=== PATIENT | male | born 1985 | race Caucasian/White ===

== ENCOUNTER 2016-12-24 17:29 | Emergency (ER) | payer SELFPAY ==
[~2016-12-24] VITALS: Ht 185.4 cm; Wt 124.7 kg
[2016-12-24 18:02] LABS: BASO # 0.1 x10^3/uL (0.0-0.2); BASO % 1 % (0-3); EOS # 0.1 x10^3/uL (0.0-0.7); EOS % 1 % (0-3); HEMATOCRIT 43.9 % (39.0-53.0); HEMOGLOBIN 14.9 g/dL (13.0-17.5); LYMPH % 12 % (24-48); MEAN CORPUSCULAR HEMOGLOBIN 31 pg (25-35); MEAN CORPUSCULAR HGB CONC 34 g/dL (31-37); MEAN CORPUSCULAR VOLUME 90 fL (79-100); MONO # 0.8 x10^3/uL (0.0-1.1); MONO % 9 % (0-9); NEUT # 6.8 x10^3uL (1.8-7.7); NEUT % 77 % (31-73); PLATELET COUNT 196 x10^3/uL (140-400); RED BLOOD COUNT 4.88 x10^6/uL (4.30-5.70); RED CELL DISTRIBUTION WIDTH 13.6 % (11.5-14.5); WHITE BLOOD COUNT 8.8 x10^3/uL (4.0-11.0)
[2016-12-24] MEDS: fentaNYL PF 100 MCG/2 ML VIAL IV PRN ×2 (18:03→18:25)
[2016-12-24] MEDS ORDERED: IV NORMAL SALINE 1,000ML 1,000 ML IV SCH (18:15)
[2016-12-24] MEDS ORDERED: fentaNYL PF 100 MCG/2 ML VIAL IV ONE (18:15)
[2016-12-24] MEDS ORDERED: ONDANSETRON PF 4 MG/2 ML VIAL. IV ONE (18:15)
--- NOTE | 2016-12-24 18:21 | PHYS DOC ---
Past History Past Medical History: No Pertinent History Past Surgical History: No Surgical History Alcohol Use: None Drug Use: None Adult General Chief Complaint Chief Complaint: TESTICULAR PAIN OR INJURY HPI HPI Patient is a 31-year-old male who drove himself to the ED with the complaint of right flank/mid abdominal pain and right testicle pain all day today. The patient worked late and didn't get to bed until 4:00 in the morning. He only slept 3 hours before being waked up by pain on the right side of his mid abdomen which has gone down toward his right groin and into his right testicle. He presented with the complaint of right testicle pain, but in fact his pain seems to start in his right flank, goes toward his right mid abdomen and right lower abdomen and into his right testicle. He's had no blood in his urine, no dysuria. No urinary retention. He has had one kidney stone before but he doesn' t think it feels like this. He has not had abdominal surgeries. He's had nausea but no vomiting. Denies fever or chills. Review of Systems Review of Systems Constitutional: Denies fever or chills [] Respiratory: Denies cough or shortness of breath [] GI: As in history of present illness : Denies dysuria or hematuria [] Musculoskeletal: Denies back pain or joint pain [] Current Medications Current Medications Current Medications Medications (Trade) Dose Ordered Sig/Amie Start Time Stop Time Status Last Admin Dose Admin Fentanyl Citrate (Fentanyl 2ml Vial) 100 mcg 1X ONCE 12/24/16 18:15 12/24/16 18:16 Ondansetron HCl (Zofran) 4 mg 1X ONCE 12/24/16 18:15 12/24/16 18:16 12/24/16 18:03 4 MG Sodium Chloride 1,000 ml @ 1,000 mls/hr Q1H 12/24/16 18:15 12/24/16 19:14 12/24/16 18:03 1,000 MLS/HR Allergies Allergies Allergies Coded Allergies Type Severity Reaction Last Updated Verified No Known Drug Allergies 12/24/16 No Physical Exam Physical Exam Constitutional: Well developed, well nourished, no acute distress, non-toxic appearance. Appears uncomfortable but not in acute distress. HENT: Normocephalic, atraumatic, bilateral external ears normal, nose normal. [ ] Eyes: conjunctiva normal, no discharge. [] Neck: Normal range of motion, no stridor. [] Abdomen: Obese. Bowel sounds normal, soft, nondistended, no masses, no pulsatile masses. No right upper quadrant tenderness, negative Guerrero's. Mild tenderness to palpation in the right mid abdomen. No right lower quadrant tenderness, negative McBurney's point tenderness. No abdominal rebound or guarding. No tenderness or bulge in the right groin. No hernia. No masses or lymphadenopathy. : Normal circumcised male. Right testicle is nontender to light palpation. No swelling of either testicle, no swelling of the scrotum, no epididymal swelling. Right epididymis is mildly tender to palpation but is not swollen. Right testicle is not high riding. Elevation of the right testicle does not increase pain. Skin: Warm, dry, no erythema, no rash. [] Extremities: No tenderness, no cyanosis, no clubbing, ROM intact, no edema. [] Neurologic: Alert and oriented X 3, normal motor function, normal sensory function, no focal deficits noted. [] Current Patient Data Vital Signs Vital Signs Date Time Temp Pulse Resp B/P (MAP) Pulse Ox O2 Delivery O2 Flow Rate FiO2 12/24/16 18:03 16 98 Lab Results Laboratory Tests Test 12/24/16 17:42 White Blood Count 8.8 x10^3/uL (4.0-11.0) Red Blood Count 4.88 x10^6/uL (4.30-5.70) Hemoglobin 14.9 g/dL (13.0-17.5) Hematocrit 43.9 % (39.0-53.0) Mean Corpuscular Volume 90 fL (79-100) Mean Corpuscular Hemoglobin 31 pg (25-35) Mean Corpuscular Hemoglobin Concent 34 g/dL (31-37) Red Cell Distribution Width 13.6 % (11.5-14.5) Platelet Count 196 x10^3/uL (140-400) Neutrophils (%) (Auto) 77 % (31-73) H Lymphocytes (%) (Auto) 12 % (24-48) L Monocytes (%) (Auto) 9 % (0-9) Eosinophils (%) (Auto) 1 % (0-3) Basophils (%) (Auto) 1 % (0-3) Neutrophils # (Auto) 6.8 x10^3uL (1.8-7.7) Lymphocytes # (Auto) 1.0 x10^3/uL (1.0-4.8) Monocytes # (Auto) 0.8 x10^3/uL (0.0-1.1) Eosinophils # (Auto) 0.1 x10^3/uL (0.0-0.7) Basophils # (Auto) 0.1 x10^3/uL (0.0-0.2) EKG EKG [] Radiology/Procedures Radiology/Procedures [] Course & Med Decision Making Course & Med Decision Making Pertinent Labs and Imaging studies reviewed. (See chart for details) 31-year-old male presents with initial complaint of right testicular pain but on further discussion and evaluation, he has pain from his right flank to his right mid abdomen, into his right groin and right testicle. Exam is not concerning for epididymitis or testicular torsion. His pain has been going on for about 10 hours on presentation. I don't believe he has testicular torsion. His pain seems possibly consistent with kidney stone pain to me. I discussed with the patient that we will get some labs, CT scan give him some IV fluids and some IV pain medicines. He is agreeable to that plan. 1800 I discussed the case with Dr. Thompson and sign the patient out to him at change of shift with labs urinalysis, and CT scan pending. [] Dragon Disclaimer Dragon Disclaimer This chart was dictated in whole or in part using Voice Recognition software in a busy, high-work load, and often noisy Emergency Department environment. It may contain unintended and wholly unrecognized errors or omissions. Departure Departure: Impression: Primary Impression: Renal colic on right side Additional Impression: Hydronephrosis, right Disposition: 01 HOME, SELF-CARE Condition: IMPROVED Patient Instructions: Diet for Kidney Stones, Kidney Stones Additional Instructions: Thank you for allowing us to participate in your care today. Followup with your primary care physician in 3 days if your symptoms do not improve. Call your Primary Doctor tomorrow and inform them of your visit today. If you do not have a primary care provider you can ask for a list of our primary care providers. Return to the emergency department you have any new or concerning findings. This should be evaluated by the primary care physician and any necessary consulting services for continued management within a few days after discharge. Return to emergency room if you have any new or concerning symptoms including but not limited to fever, chills, nausea, vomiting, intractable pain, any new rashes, chest pain, shortness of air, uncontrolled bleeding, difficulty breathing, and/or vision loss. You may have been prescribed medication that can change in your level of thinking and ability to operate machinery. These medications include hydrocodone and Ativan. Also, Benadryl has been known to do this as well. Be sure to check with your pharmacist and ask if the medications you've prescribed can affect your level of consciousness. I recommend not operating heavy machinery or driving while on medication such as these. Scripts Ibuprofen (IBUPROFEN) 600 Mg Tablet 600 MG PO QID Y for PAIN, #20 Prov: FREDERICK THOMPSON MD 12/24/16 Assessment Status/Problems: Doing well Additional comments: Seen and evaluated by me in the ED. Signout accepted from Dr. Fraser. Patient's presentation is highly consistent with renal colic. Patient be given adequate analgesia and hydration the ED. Patient's CT scan of his abdomen reveals a 4 mm stone identified within the urinary bladder just distal to the right UVJ causing mild right-sided hydronephrosis and hydroureter. I discussed with the patient the results including the punctate 2 mm stone that was also identified within the right kidney. Patient currently feels much improved. Patient is almost pain-free. Patient still feels a slight ache on the right side. Patient' s clinically and hemodynamically stable for discharged home at this time. Patient will be prescribed ibuprofen to assist him with the pain from the hydronephrosis however he should not require anything stronger at this time. Patient instructed to follow-up with his primary care doctor for further evaluation of a stone and assistance with dietary changes to minimize to stone formation Problem Qualifiers TAQUERIA FRASER MD Dec 24, 2016 18:21 FREDERICK THOMPSON MD Dec 24, 2016 18:50
[2016-12-24 18:25] LABS: ALBUMIN/GLOBULIN RATIO 1.3 (1.0-1.7); CALCIUM 8.4 mg/dL (8.5-10.1); CREATININE 1.3 mg/dL (0.7-1.3); GFR 64.4; TOTAL BILIRUBIN 0.7 mg/dL (0.2-1.0); TOTAL PROTEIN 7.2 g/dL (6.4-8.2)
[2016-12-24 18:29] VITALS: BP 149/86
--- NOTE | 2016-12-24 18:35 | RAD ---
Examination: CT of the abdomen pelvis without contrast HISTORY: History of right lower quadrant abdominal pain, right testicular pain COMPARISON: None available TECHNIQUE: Axial CT images of the abdomen pelvis were performed without contrast. Coronal and sagittal reformats are performed. Exposure: One or more of the following individualized dose reduction techniques were utilized for this examination: 1. Automated exposure control 2. Adjustment of the mA and/or kV according to patient size 3. Use of iterative reconstruction technique FINDINGS: Minimal bibasilar lung atelectasis. No evidence of free air identified in the abdomen. There is diffuse decreased attenuation noted throughout the liver likely hepatic steatosis. The visualized spleen, adrenals grossly appears unremarkable. The gallbladder is mildly distended. The visualized pancreas grossly appears unremarkable. The stomach is mildly distended. The small bowel is nondilated. The appendix is normal. Feces and gas noted in the colon. Punctate 2 mm intrarenal collecting system calculus identified in the right kidney. Mild right-sided hydronephrosis and hydroureter identified with a 4 mm calculus identified just distal to the right ureterovesical junction in the urinary bladder. The urinary bladder is mildly thickened. The caliber of the aorta grossly appears unremarkable. No evidence of lytic bony destructive lesion. IMPRESSION: 1. 4 mm calculus identified in the urinary bladder just distal to the right ureterovesical junction causing mild right-sided hydronephrosis and hydroureter. 2. Punctate 2 mm calculus identified in the right kidney. 3. Hepatic steatosis. 4. Mild thickened appearance of the wall of the urinary bladder probably due to nondistention or cystitis. Electronically signed by: Mickey Bone MD (12/24/2016 6:32 PM) [facility]
[2016-12-24] MEDS ORDERED: IBUP600T16 PO (18:50)
[2016-12-24 18:55] LABS: BILIRUBIN,URINE NEG (NEG); CLARITY,URINE CLEAR; COLOR,URINE YELLOW; GLUCOSE,URINE NEG (NEG)
[2016-12-24 18:56] LABS: BACTERIA,URINE 0 /HPF (0-FEW); NITRITE,URINE NEG (NEG); SQUAMOUS EPITHELIAL CELL,UR OCC /LPF; UROBILINOGEN,URINE 0.2 mg/dL (0.2 mg/dL); WBC,URINE OCC /HPF (0-4)
[2016-12-24] MEDS ORDERED: HYDROcodone/APAP 5/325MG 1 TAB TABLET PO ONE (19:15)
== END 2016-12-24 19:21 | disposition home or self-care (01) ==
LOC: ER 17:29
DX: N23 Unspecified renal colic (principal); N13.2 Hydronephrosis with renal and ureteral calculous obstruction; Z87.442 Personal history of urinary calculi
CPT/HCPCS: 36415; 74176; 80053; 81001; 83690; 85025; 96361; 96374; 96375; 96376; 99285; J2405; J3010; J7030